=== PATIENT | female | born 1955 | race Caucasian/White ===

== ENCOUNTER 2021-08-06 11:25 | Observation (INO) ==
[2021-08-07] MEDS ORDERED: Naloxone 0.4 MG/ML INJ IVP PRN ×2 (00:23→15:35)
[2021-08-07] MEDS ORDERED: Ondansetron 4 MG/2 ML VIAL IVP PRN ×3 (00:23→15:35)
[2021-08-07] MEDS ORDERED: 0.9 % Sodium Chloride 1,000 ML IVC SCH (00:30)
[2021-08-07 05:08] LABS: Hemoglobin 12.5 g/dL (11.5-15.4); Mean Corpuscular HGB Conc 32.1 g/dL (31.6-35.5); Mean Corpuscular Hemoglobin 27.8 pg (28.0-33.3); Mean Corpuscular Volume 86.7 fL (83.0-100.0); Mean Platelet Volume 9.5 fL (9.4-12.4); Platelet Count 236 K/mcL (140-400); White Blood Count 8.4 K/mcL (4.3-11.1)
[2021-08-07 05:23] LABS: INR 1.1; Prothrombin Time 11.9 Seconds (9.4-12.1)
[2021-08-07 05:26] LABS: Activated Partial Thrombo Time 30.4 Seconds (26.0-36.0)
[2021-08-07 05:30] LABS: BUN/Creatinine Ratio 18 (6-26); Blood Urea Nitrogen 12 mg/dL (8-23); Calcium 9.4 mg/dL (8.6-10.3); Carbon Dioxide 24 mEq/L (23-29); Chloride 105 mEq/L (98-107); Glucose 112 mg/dL (70-105); Osmolality,Calculated 285 (280-300); Sodium 137 mEq/L (136-145); eGFR For African Americans > 60 (> 60); eGFR For Non-African Americans > 60 (> 60)
[2021-08-07] MEDS: *HR* Heparin 5,000 UNIT/ML VIAL SQ SCH ×2 (05:58→15:14)
[2021-08-07] MEDS ORDERED: Ringers Solution, Lactated 1,000 ML ONE (08:32)
[2021-08-07] MEDS ORDERED: *HR* HYDROmorphone PF 0.5 MG/0.5 ML SYRINGE IVP PRN (10:34)
[2021-08-07] MEDS ORDERED: *HR* Labetalol 20 MG/4 ML SYRINGE IVP PRN (10:34)
[2021-08-07] MEDS ORDERED: Albuterol 2.5 MG/3 ML NEBULIZER IH PRN (10:34)
[2021-08-07] MEDS ORDERED: *HR* OxyCODONE Immed Rel 5 MG TABLET PO PRN ×2 (10:34→15:35)
[2021-08-07] MEDS ORDERED: Vancomycin 1,000 MG VIAL ONE (10:34)
[2021-08-07] MEDS ORDERED: *HR* FentaNYL (PF) 100 MCG/2 ML VIAL ONE (10:39)
[2021-08-07] MEDS ORDERED: *HR* Midazolam HCl 2 MG/2 ML VIAL ONE (10:39)
[2021-08-07] MEDS ORDERED: Ketamine HCL *QUVA* 50mg (1mL) SYRINGE ONE (10:39)
[2021-08-07] MEDS ORDERED: Tranexamic Acid 1,000 MG/10 ML VIAL ONE ×2 (10:40→13:50)
[2021-08-07] MEDS ORDERED: Lidocaine -MPF 2% 5 ML VIAL ONE (10:40)
[2021-08-07] MEDS ORDERED: *HR* Succinylcholine 200 MG/10 ML VIAL IVP ONE (10:40)
[2021-08-07] MEDS ORDERED: Povidone-Iodine 45 ML, Sodium Chloride IRRigation 1,000 ML IR ONE (11:45)
[2021-08-07] MEDS ORDERED: TOTAL JOINT MIXTURE (100ML) INTRAART ONE (11:45)
[2021-08-07] MEDS ORDERED: Gentamicin 80 MG/2 ML VIAL ONE (12:50)
[2021-08-07] MEDS ORDERED: Acetaminophen IV 1,000 MG/100 ML BAG IVPB ONE (13:17)
[2021-08-07] MEDS: Acetaminophen IV 1,000 MG/100 ML BAG IVPB ONE ×2 (13:30→15:14)
[2021-08-07] MEDS ORDERED: EPHEDrine 50 MG/ML VIAL ONE (13:41)
[2021-08-07] MEDS ORDERED: *HR* Phenylephrine 10 MG/ML VIAL ONE (13:50)
[2021-08-07] MEDS ORDERED: *HR* HYDROMORPHONE 2 MG/ML VIAL ONE (14:41)
[2021-08-07] MEDS ORDERED: MOM Conc 10 ML UD.LIQ PO PRN (15:35)
[2021-08-07] MEDS ORDERED: *HR* Promethazine 25 MG/ML VIAL IM PRN (15:35)
[2021-08-07] MEDS ORDERED: Sennosides 8.6 MG TABLET PO PRN (15:35)
[2021-08-07] MEDS: Ascorbic Acid 500 MG TABLET PO SCH (18:18)
[2021-08-07] MEDS: Ketorolac 30 MG/ML VIAL IVP SCH (18:19)
[2021-08-07] MEDS: Ringers Solution, Lactated 1,000 ML IVC SCH (18:21)
[2021-08-07] MEDS: ceFAZolin 2,000 MG in 0.9 % Sodium Chloride 100 ML IVPB SCH (19:08)
[2021-08-08] MEDS: Ketorolac 30 MG/ML VIAL IVP SCH ×3 (00:19→13:00)
[2021-08-08] MEDS: ceFAZolin 2,000 MG in 0.9 % Sodium Chloride 100 ML IVPB SCH (00:19)
[2021-08-08 04:25] LABS: Basophils % 0.2 %; Hematocrit 31.2 % (35.3-44.9); Immature Granulocytes % 0.5 % (0-4); Lymphocytes # 0.6 K/mcL (0.6-4.6); Lymphocytes % 4.5 %; Mean Corpuscular HGB Conc 32.4 g/dL (31.6-35.5); Mean Corpuscular Hemoglobin 27.9 pg (28.0-33.3); Mean Corpuscular Volume 86.2 fL (83.0-100.0); Mean Platelet Volume 9.8 fL (9.4-12.4); Monocytes # 0.7 K/mcL (0.0-1.3); Platelet Count 194 K/mcL (140-400); Red Blood Count 3.62 M/mcL (3.82-4.97); Red Cell Distribution Width 13.8 % (11.5-14.5); Segmented Neutrophils % 89.8 %
[2021-08-08 04:32] LABS: Hemoglobin 10.1 g/dL (11.5-15.4); Neutrophils # 11.7 K/mcL (1.6-8.9)
[2021-08-08 04:38] LABS: BUN/Creatinine Ratio 16 (6-26); Blood Urea Nitrogen 11 mg/dL (8-23); Calcium 8.5 mg/dL (8.6-10.3); Carbon Dioxide 23 mEq/L (23-29); Chloride 106 mEq/L (98-107); Glucose 128 mg/dL (70-105); Osmolality,Calculated 285 (280-300); Potassium 4.3 mEq/L (3.5-5.1); Sodium 137 mEq/L (136-145); eGFR For African Americans > 60 (> 60); eGFR For Non-African Americans > 60 (> 60)
[2021-08-08] MEDS ORDERED: *HR* FentaNYL (PF) 100 MCG/2 ML VIAL ONE ×2 (07:58→08:33)
[2021-08-08] MEDS ORDERED: *HR* Midazolam HCl 2 MG/2 ML VIAL ONE (07:58)
[2021-08-08 08:00] VITALS: BP 108/64; PULSE 68; TEMP 97.8; O2SAT 96
[2021-08-08] MEDS: Ascorbic Acid 500 MG TABLET PO SCH (08:12)
[2021-08-08] MEDS: Ringers Solution, Lactated 1,000 ML IVC SCH (08:19)
[2021-08-08] MEDS ORDERED: *HR* Propofol 200 MG/20 ML VIAL IVP ONE (08:31)
[2021-08-08] MEDS ORDERED: Multivit/Ca/Min/Fe/FA 1 TAB TABLET PO SCH (09:00)
[2021-08-08] MEDS ORDERED: Methenamine Hippurate [Hiprex] 1 GM Tablet PO SCH (09:00)
== END 2021-08-08 14:03 | disposition home or self-care (01) ==
LOC: 3ANU → SUATTDRO 08-07 00:09 → 4WAOSI 08-07 17:07
PROVIDERS: ADMIT General Practice; ATTEND Pharmacist